=== PATIENT | female | born 1935 | race Caucasian/White ===

== ENCOUNTER 2017-11-06 05:42 | Day surgery (SDC) | payer MEDICARE, OTHER ==
[~2017-11-06] VITALS: Ht 154.9 cm; Wt 54.0 kg
[~2017-11-06 05:42] MED LIST: ASCO10007 PO; ASCORBIC ACID PO; ASPI-1197 PO; CARV25TA PO; ERGO2000 PO; FISH1CAP63 PO; L.AC1CAP6 PO; LISI-613 PO; MAGN400T40 PO; MELO-106 PO; MULTIVITAMIN PO; POTA10CA44 PO; PROG100C6 PO; SUPER B COMPLEX PO; TRAMADOL PO; ZINC PO; [UNRECOGNIZED DRUG - OTHER] PO; chromium picolinate PO; latanoprost
[2017-11-06 06:09] VITALS: BP 128/82
[2017-11-06] MEDS ORDERED: SODIUM CHLORIDE 0.9% 1000ML 1,000 ML IV ONE ×2 (06:10→06:40)
[2017-11-06] MEDS ORDERED: PROPOFOL 1000 MG/100 ML 100 ML IV ONE (07:04)
== END 2017-11-06 07:55 | disposition home or self-care (01) ==
LOC: ENDO 05:42 → DAH 05:42 → ENDO 07:55
PROVIDERS: ATTEND Internal Medicine Gastroenterology
DX: K29.50 Unspecified chronic gastritis without bleeding (principal); K26.9 Duodenal ulcer, unspecified as acute or chronic, without hemorrhage or perforation; K20.9 Esophagitis, unspecified; K22.8 Other specified diseases of esophagus; E78.5 Hyperlipidemia, unspecified; I10 Essential (primary) hypertension; D64.9 Anemia, unspecified; Z98.890 Other specified postprocedural states; Z90.710 Acquired absence of both cervix and uterus; Z79.899 Other long term (current) drug therapy; Z79.82 Long term (current) use of aspirin; Z98.49 Cataract extraction status, unspecified eye; Z88.2 Allergy status to sulfonamides; Z88.1 Allergy status to other antibiotic agents; Z88.8 Allergy status to other drugs, medicaments and biological substances
CPT/HCPCS: 43239; 88305; 88312; 93005; A4606; J2704; J7030 ×2

== ENCOUNTER → 2019-02-09 | Outpatient (CLI) | payer MEDICARE, OTHER ==
[~2019-02-09] MED LIST changes: -ASCORBIC ACID PO; -MELO-106 PO; +PROG100C11 PO; -PROG100C6 PO; -TRAMADOL PO; +TYL3 PO; -ZINC PO
== END | disposition home or self-care (01) ==
LOC: RAH 13:19
PROVIDERS: ATTEND Family Medicine
DX: Z12.31 Encounter for screening mammogram for malignant neoplasm of breast (principal)
CPT/HCPCS: 77067